=== PATIENT | male | born 1985 | race Caucasian/White ===

== ENCOUNTER 2020-09-22 11:32 | Emergency (ER) | payer BC ==
[2020-09-22 11:45] VITALS: BP 127/84; PULSE 86; RESP 18; TEMP 98.6
--- NOTE | 2020-09-22 11:57 | ED ---
General Adult HPI - General Chief complaint: Recheck/Abnormal Lab/Rx Stated complaint: wants covid testing Source: patient Mode of arrival: ambulatory Limitations: no limitations - History of Present Illness Initial comments: Patient is a 35-year-old previously healthy male presents to the emergency room requesting Covid testing. Patient states that he had a sick contact 6 days ago. Since then he has had a mild headache and nasal congestion. He presents with his girlfriend and 2 kids were also requesting Covid testing. Patient denies any shortness of breath or chest pain. No nausea, vomiting or diarrhea. No fevers. No other alleviating, precipitating or modifying factors - Related Data Home Medications Medication Instructions Recorded Confirmed No Known Home Medications 09/22/20 09/22/20 Allergies Allergy/AdvReac Type Severity Reaction Status Date / Time No Known Allergies Allergy Verified 09/22/20 11:44 Review of Systems ROS Statement: Those systems with pertinent positive or pertinent negative responses have been documented in the HPI. ROS Other: All systems not noted in ROS Statement are negative. Past Medical History Past Medical History: No Reported History History of Any Multi-Drug Resistant Organisms: None Reported Past Surgical History: Appendectomy, Orthopedic Surgery Additional Past Surgical History / Comment(s): rt knee, vasectomy Past Anesthesia/Blood Transfusion Reactions: No Reported Reaction Past Psychological History: No Psychological Hx Reported Smoking Status: Never smoker Past Alcohol Use History: None Reported Past Drug Use History: None Reported - Past Family History Father Family Medical History: Coronary Artery Disease (CAD), Hypertension General Exam Limitations: no limitations Course Vital Signs 09/22/20 09/22/20 11:42 12:00 Temperature 98.6 F Pulse Rate 86 Respiratory 18 18 Rate Blood Pressure 127/84 O2 Sat by Pulse 97 Oximetry Medical Decision Making - Medical Decision Making Upon arrival patient is placed in room 30. Vitals are obtained. The patient's does not demonstrate any hypoxia. He is a symptomatically at this time requesting Covid testing. The patient is swabbed. It will be sent for PCR test ing. Patient is asked to quarantine until his results come back and his symptoms improved. He'll be called positive result. Patient agreed to this. He is to return for any new or worsening symptoms he is discharged home in stable condition Disposition Clinical Impression: Exposure to COVID-19 virus Disposition: HOME SELF-CARE Condition: Stable Instructions (If sedation given, give patient instructions): Normal Exam (ED) Additional Instructions: Quarantine until the results of your tests are back and you have no symptoms. Return to the emergency room for any new or worsening symptoms. We will call you with positive results Is patient prescribed a controlled substance at d/c from ED?: No Referrals: Tarun Hampton MD [Primary Care Provider] - 1-2 days Time of Disposition: 11:57
== END 2020-09-22 12:08 | disposition home or self-care (01) ==
LOC: EC 11:32
DX: Z03.818 Encounter for observation for suspected exposure to other biological agents ruled out (principal); Z20.828 Contact with and (suspected) exposure to other viral communicable diseases
CPT/HCPCS: 99283; U0003

== ENCOUNTER → 2024-07-03 | Outpatient (CLI) | payer OTHER ==
--- NOTE | 2024-07-04 20:45 | XR ---
EXAMINATION TYPE: XR hand complete RT DATE OF EXAM: 07/03/2024 COMPARISON: None HISTORY: Strain flexor muscle pain third and fourth digits TECHNIQUE: 3 view right hand FINDINGS: No acute fracture evident. Joint spaces are preserved. Soft tissues are unremarkable. Follow up exams can be performed 7-10 days from acute trauma for continued pain. IMPRESSION: 1. No acute osseous abnormality right hand. [facility], , 07/04/2024 8:43 PM
== END | disposition home or self-care (01) ==
LOC: RADXRMAIN 16:44
PROVIDERS: ATTEND Emergency Medicine
DX: S56.113A Strain of flexor muscle, fascia and tendon of right middle finger at forearm level, initial encounter